=== PATIENT | male | born 1980 | race Caucasian/White ===

== ENCOUNTER 2017-04-19 19:55 | Emergency (ER) | payer BC ==
[2017-04-19] MEDS ORDERED: Morphine 4 MG/ML VIAL ONE ×2 (20:09→21:08)
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
== END 2017-04-19 22:57 | disposition home or self-care (01) ==
LOC: ERS 19:55
DX: S02.609A Fracture of mandible, unspecified, initial encounter for closed fracture (principal); F17.210 Nicotine dependence, cigarettes, uncomplicated; Y04.0XXA Assault by unarmed brawl or fight, initial encounter
CPT/HCPCS: 70486; 96372; J2270

== ENCOUNTER 2017-04-21 11:48 | Outpatient (CLI) | payer BC ==
[2017-04-21 12:38] LABS: Hematocrit 48.5 % (42.0-52.0); Mean Platelet Volume 8.1 fL (7.4-10.4); Red Blood Cell (RBC) Count 5.24 mill/uL (4.70-6.10); White Blood Cell (WBC) Count 12.3 thou/uL (4.8-10.8)
[2017-04-21 12:45] LABS: PTT 29.3 SEC (22.9-36.1); Prothrombin Time 13.7 SEC (12.0-14.7)
--- NOTE | 2017-04-21 12:57 | RAD ---
PA AND LATERAL VIEWS CHEST: HISTORY: Preoperative evaluation. FINDINGS: The cardiomediastinum is normal. The lungs are expanded and clear. The bony thorax is normal. IMPRESSION: Normal exam. POS: [facility]
[2017-04-21 13:03] LABS: ALT (SGPT) 13 U/L (8-55); AST (SGOT) 16 U/L (5-34); Alkaline Phosphatase 50 U/L (40-150); Bilirubin, Direct 0.4 mg/dL (0.1-0.3); Protein, Total 7.1 g/dL (6.0-8.3)
== END 2017-04-21 11:49 | disposition home or self-care (01) ==
LOC: LABBT 11:48
PROVIDERS: ATTEND Dentist Oral and Maxillofacial Surgery
DX: Z01.818 Encounter for other preprocedural examination (principal); S02.612A Fracture of condylar process of left mandible, initial encounter for closed fracture; S02.66XA Fracture of symphysis of mandible, initial encounter for closed fracture
CPT/HCPCS: 71020; 80076; 85027; 85610; 85730; 93005; 93010

== ENCOUNTER 2017-04-22 10:11 | Day surgery (SDC) | payer BC ==
[2017-04-21 12:28] VITALS: BMI 22.3
[2017-04-22] MEDS ORDERED: Chlorhexidine Gluconate 15 ML UDCUP SSP ONE ×2 (10:26→11:20)
[2017-04-22] MEDS ORDERED: Fentanyl 100 MCG/2 ML VIAL ONE ×2 (10:27→12:55)
[2017-04-22] MEDS ORDERED: Midazolam HCl 2 mg/2 ml Vial ONE (10:27)
[2017-04-22] MEDS ORDERED: Lidocaine 2% w/Epinephrine 1:200K 20 ML VIAL ONE (10:36)
[2017-04-22] MEDS ORDERED: Clindamycin/D5W 900 mg/50 ml Premix Bag ONE (11:04)
[2017-04-22] MEDS ORDERED: Dexamethasone 20 MG/5 ML VIAL ONE ×2 (11:04→11:52)
[2017-04-22] MEDS ORDERED: Glycopyrrolate 0.2 MG/ML 5 ML SYRINGE ONE (11:52)
[2017-04-22] MEDS ORDERED: Propofol 200 MG/20 ML VIAL ONE (11:52)
[2017-04-22] MEDS ORDERED: Lidocaine 1% PF 5 ML VIAL ONE (11:52)
[2017-04-22] MEDS ORDERED: Metoclopramide HCl 10 MG/2 ML VIAL ONE (11:52)
[2017-04-22] MEDS ORDERED: Ondansetron HCl/PF 4 MG/2 ML Vial ONE (11:52)
[2017-04-22] MEDS ORDERED: Ketorolac Tromethamine 30 MG/ML VIAL ONE (11:52)
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
[2017-04-22] MEDS ORDERED: Promethazine HCl 25 MG/ML VIAL IM/IV PRN (14:07)
[2017-04-22] MEDS ORDERED: Non-Formulary Medication 1 EACH PO PRN (14:07)
[2017-04-22] MEDS ORDERED: Ondansetron HCl/PF 4 MG/2 ML Vial IVP PRN (14:07)
== END 2017-04-22 14:39 | disposition home or self-care (01) ==
LOC: SDC 10:11
PROVIDERS: ATTEND Dentist Oral and Maxillofacial Surgery
PROC: 0NSV04Z Reposition Left Mandible with Internal Fixation Device, Open Approach (ICD-10-PCS; principal; 2017-04-22)
DX: S02.66XB Fracture of symphysis of mandible, initial encounter for open fracture (principal); S02.612A Fracture of condylar process of left mandible, initial encounter for closed fracture
CPT/HCPCS: 96374; J0131; J1100; J1885; J2001; J2250; J2405; J2704; J2765; J3010; J3490

== ENCOUNTER 2019-06-19 23:41 | Emergency (ER) | payer BC, SELFPAY ==
[2019-06-20] MEDS ORDERED: Acetaminophen 500 MG TAB ONE (00:32)
== END 2019-06-20 00:38 ==
LOC: ERS 23:41
DX: R68.84 Jaw pain (principal); F17.210 Nicotine dependence, cigarettes, uncomplicated
CPT/HCPCS: 99283